=== PATIENT | female | born 1990 | race Caucasian/White ===

== ENCOUNTER 2022-08-12 18:37 | Inpatient (IN) | payer BC ==
[2022-08-12] MEDS ORDERED: Acetaminophen 325 MG Tab PO PRN (19:20)
[2022-08-12] MEDS ORDERED: Ondansetron 4 MG/2 ML SDV IVPUSH PRN (19:20)
[2022-08-12] MEDS ORDERED: Lidocaine 1% 50 ML MDV INJECT PRN (19:20)
[2022-08-12] MEDS ORDERED: Nalbuphine HCl 10 MG/ 1ML Amp IVPUSH PRN (19:20)
[2022-08-12] MEDS ORDERED: Calcium Carbonate 500 MG Tab.Chew PO PRN (19:20)
[2022-08-12] MEDS ORDERED: Oxytocin/Lactated Ringers 10 UNIT/1,000 ML BAG IV SCH ×2 (19:30)
[2022-08-12] MEDS: Lactated Ringers 1,000 ML IV SCH ×3 (20:23→22:12)
[2022-08-12] MEDS ORDERED: diphenhydrAMINE 50 MG/ML SDV IVPUSH PRN (21:37)
[2022-08-12] MEDS ORDERED: fentaNYL 100 MCG/2 ML SDV EPIDUR PRN (21:37)
[2022-08-12] MEDS ORDERED: ePHEDrine 50 MG/ML SDV IVPUSH PRN (21:37)
[2022-08-12] MEDS ORDERED: Bupivacaine/fentaNYL/NS 100 ML Bag EPIDUR PRN (21:37)
[2022-08-13] MEDS: Lactated Ringers 1,000 ML IV SCH (01:37)
[2022-08-13] MEDS ORDERED: Benzocaine/Menthol 20%-0.5% Spray 78 GM Cannister TOP PRN (08:14)
[2022-08-13] MEDS ORDERED: Docusate Sodium 100 MG Cap PO PRN (08:14)
[2022-08-13] MEDS ORDERED: Acetaminophen 325 MG Tab PO PRN (08:14)
[2022-08-13] MEDS: Witch Hazel Medicated Pads 40/Jar TOP PRN (08:25)
[2022-08-13] MEDS: Ibuprofen 600 MG Tab PO PRN ×2 (08:26→16:51)
[2022-08-14] MEDS: Witch Hazel Medicated Pads 40/Jar TOP PRN (08:40)
== END 2022-08-14 10:40 | disposition home or self-care (01) | DRG 560 ==
LOC: JD.OBCHECK 18:37 → JD.OB 18:40 → JD.OBCHECK 19:20 → JD.OB 19:20 → OBSVTOIN 08-13 03:30 → JD.OB 08-13 03:31
PROVIDERS: ADMIT Obstetrics & Gynecology; ATTEND Obstetrics & Gynecology
PROC: 10E0XZZ Delivery of Products of Conception, External Approach (ICD-10-PCS; principal; 2022-08-13)
PROC: 10907ZC Drainage of Amniotic Fluid, Therapeutic from Products of Conception, Via Natural or Artificial Opening (ICD-10-PCS; 2022-08-13)
PROC: 3E0R3BZ Introduction of Anesthetic Agent into Spinal Canal, Percutaneous Approach (ICD-10-PCS; 2022-08-13)
PROC: 0KQM0ZZ Repair Perineum Muscle, Open Approach (ICD-10-PCS; 2022-08-13)
PROC: 3E0P7VZ Introduction of Hormone into Female Reproductive, Via Natural or Artificial Opening (ICD-10-PCS; 2022-08-13)
DX: O69.1XX0 Labor and delivery complicated by cord around neck, with compression, not applicable or unspecified (principal); Z3A.39 39 weeks gestation of pregnancy; Z37.0 Single live birth; O70.1 Second degree perineal laceration during delivery
CPT/HCPCS: 01967; 36415; 51702; 59025; 59409; 84112; 85027; 86592; 86850; 86900; 86901; A9270-GY; J2300; J2405; J2590; J3010; J7120